=== PATIENT | male | born 1965 | race Caucasian/White ===

== ENCOUNTER 2017-01-07 15:53 | Emergency (ER) | payer BC ==
--- NOTE | 2017-01-07 17:16 | ER PHYSICIAN DOCUMENTATION ---
Physician Documentation [facility] Name:Javier Pickering Age:51 yrs Sex:Male :1965 Arrival Date:01/07/2017 Time:15:53 Bed6 Private MD: Mehrdad Carrero Disposition: 01/07/17 16:47 Discharged to Home/Self Care. Impression: Medial Malleolus Fracture. - Condition is Good. - Discharge Instructions: ANKLE FRACTURE General - FRACTURE, Ankle (General). - Prescriptions for Hydrocodone- Acetaminophen 5-325 mg Oral Tablet - take 1 tablet by ORAL route every 6 hours As needed; 20 tablet. - Medical Reconciliation form form. - Follow up: Kyler Franklin DO, Abraham Cuba MD; When: 4- 6 days; Reason: Continuance of care. - Problem is new. - Symptoms have improved. HPI: 01/07 16:27 This 51 yrs old Male presents to ER via Private Vehicle with complaints of sc Ankle Injury - RT. 16:27 The patient presents with decreased range of motion, an injury. The complaints affect sc the right ankle. Onset: The symptom(s)/episode began/occurred just prior to arrival. Context: The problem was sustained outdoors, resulted from twisting of the extremity, The mechanism of injury is unknown. The patient is unable to bear weight. must have assistance. Associated signs and symptoms: The patient has no apparent associated signs or symptoms. Historical: - Allergies: PENICILLINS; - Home Meds: 1. Ciprofloxacin Opht 2. Metronidazole Oral - PMHx: colitis; - PSHx: None; - Tetanus: < 10 years. - Ebola Screening: : Patient denies exposure to infectious person. Patient denies travel to an Ebola-affected area in the 21 days before illness onset. . - Social history: Smoking status: Patient states former smoker of tobacco. Patient uses alcohol on a daily basis. when not on meds that he can't drink with.. ROS: 16:28 Constitutional: Negative for fever, chills, and weight loss. sc Eyes: Negative for injury, pain, redness, and discharge. ENT: Negative for injury, pain, and discharge. Cardiovascular: Negative for chest pain, palpitations, and edema. Respiratory: Negative for shortness of breath, cough, wheezing, and pleuritic chest pain. Abdomen/GI: Negative for abdominal pain, nausea, vomiting, diarrhea, and constipation. Back: Negative for injury and pain. Skin: Negative for injury, rash, and discoloration. 16:28 Neuro: Negative for headache, weakness, numbness, tingling, and seizure. sc 16:28 MS/extremity: Positive for injury or acute deformity, decreased range of motion, swelling, tenderness. Exam: Constitutional: This is a well developed, well nourished patient who is awake, alert, and in no acute distress. Head/Face: Normocephalic, atraumatic. Neck: Trachea midline, no thyromegaly or masses palpated, and no cervical lymphadenopathy. Supple, full range of motion without nuchal rigidity, or vertebral point tenderness. No meningismus. Cardiovascular: Regular rate and rhythm with a normal S1 and S2. No gallops, murmurs, or rubs. Normal PMI, no JVD. No pulse deficits. Respiratory: Lungs have equal breath sounds bilaterally, clear to auscultation and percussion. No rales, rhonchi or wheezes noted. No increased work of breathing, no retractions or nasal flaring. Back: No spinal tenderness. No costovertebral tenderness. Full range of motion. Skin: Warm, dry with normal turgor. Normal color with no rashes, no lesions, and no evidence of cellulitis. 16:28 Neuro: Awake and alert, GCS 15, oriented to person, place, time, and situation. sc Cranial nerves II-XII grossly intact. Motor strength 5/5 in all extremities. Sensory grossly intact. Cerebellar exam normal. Normal gait. 16:28 Musculoskeletal/extremity: Extremities: grossly normal except: noted in the right ankle: decreased ROM, ecchymosis, swelling, tenderness, Circulation is intact in all extremities. Sensation intact. Compartment Syndrome exam of affected extremity: is normal. Calcaneus exam normal. 16:28 Skin: Exam negative for Vital Signs: 16:17 BP 127 / 85; Pulse 101; Resp 18; Temp 98.8; Pulse Ox 97% on R/A; Pain 8/10; st Procedures: 16:46 Splinting: Splint applied to right ankle using Orthoglass splint, applied by myself. sc Examined by mi, post splint application: neurovascular intact, Patient tolerated well. MDM: 16:03 Patient medically screened. sc 16:31 Differential diagnosis: fracture, sprain. Data reviewed: vital signs, nurses notes, sc radiologic studies, plain films, and as a result, I will discharge patient. Counseling: I had a detailed discussion with the patient and/or guardian regarding: the historical points, exam findings, and any diagnostic results supporting the discharge/admit diagnosis, radiology results, the need for outpatient follow up, for a referral to a specialist. 16:32 Test interpretation: by ED physician or midlevel provider: plain radiologic studies. ED sc course: medial malleolus fx, unclear if ankle stable, needs eval for possible surgery. 01/07 16:12 Order name: Ice Packs; Complete Time: 16:12 01/07 16:46 Order name: Elevate and Ice Pack; Complete Time: 17:14 fl 01/07 16:46 Order name: ORTHO: Crutches & Training; Complete Time: 17:14 fl Dispensed Medications: No medications were administered Signatures: Mary French RN RN st Chew, Scott, MD MD fl
--- NOTE | 2017-01-07 17:16 | ER NURSING DOCUMENTATION ---
Nurse's Notes [facility] Name:Javier Pickering Age:51 yrs Sex:Male :1965 Arrival Date:01/07/2017 Time:15:53 Bed6 Private MD: Diagnosis:Medial Malleolus Fracture Presentation: 01/07 15:56 Acuity: RHIANNON 4 st 16:12 Presenting complaint: Patient states: pt was sledding with his kids and they caught st some air and then landed on on the right ankle. pt has right ankle pain and swelling. Transition of care: patient was not received from another setting of care. 16:12 Method Of Arrival: Private Vehicle st Triage Assessment: 16:15 General: Appears in no apparent distress, Behavior is cooperative. Pain: Complains of st pain in right ankle Pain currently is 8 out of 10 on a pain scale. Aggravated by weight bearing. Neuro: No deficits noted. Cardiovascular: No deficits noted. Respiratory: No deficits noted. GI: No deficits noted. Musculoskeletal: Circulation, motion, and sensation intact Capillary refill < 3 seconds Swelling present in right ankle. Historical: - Allergies: PENICILLINS; - Home Meds: 1. Ciprofloxacin Opht 2. Metronidazole Oral - PMHx: colitis; - PSHx: None; - Tetanus: < 10 years. - Ebola Screening: : Patient denies exposure to infectious person. Patient denies travel to an Ebola-affected area in the 21 days before illness onset. . - Social history: Smoking status: Patient states former smoker of tobacco. Patient uses alcohol on a daily basis. when not on meds that he can't drink with.. Screenin:17 Infectious Disease Risk None. Abuse screen: Denies threats or abuse. Denies injuries st from another. pt feels safe at home. Nutritional screening: No deficits noted. Vital Signs: 16:17 BP 127 / 85; Pulse 101; Resp 18; Temp 98.8; Pulse Ox 97% on R/A; Pain 8/10; st ED Course: 15:55 Patient arrived in ED. lm3 15:56 Mary French, RN is Primary Nurse. st 15:[address] 16:03 Mehrdad Li MD is Attending Physician. sc 16:12 Port Xray Completed. pm1 16:18 Valuables Remains with patient Patient has correct armband on for positive st identification. Bed in low position. Ice pack to injury. 16:46 Kyler Franklin DO, Abraham Cuba MD is Referral Physician. ga 17:14 Assist Provider Assist provider with fracture care Performed by Mehrdad Li MD st Immobilized with OCL splint, Post immobilization, circulation, motor and sensation remain intact. Patient tolerated well. Administered Medications: No medications were administered Outcome: 16:47 Discharge ordered by . ga 17:15 Discharged to home ambulatory, with crutches. st 17:15 Condition: improved 17:15 Discharge instructions given to patient, family, Instructed on crutch walking, discharge instructions, follow up and referral plans. medication usage, Ortho Care Prescriptions given X 1. 17:15 [address] 01/09 11:49 Discharge F/U Call: Unable to reach: no answer st Signatures: Mary French, RN Mehrdad Johnson MD MD ga Jose Christensen pm1 Veronica, Bere lm3
--- NOTE | 2017-01-07 17:53 | RADIOLOGY REPORT ---
Three views of the right ankle demonstrate an oblique fracture of the medial malleolus with approximately 1 cm of anterior and distal displacement. The talus and fibula appear intact. No other abnormality is identified. IMPRESSION: Displaced interarticular oblique fracture of the medial malleolus as described. MTDD
== END 2017-01-07 17:16 | disposition home or self-care (01) ==
LOC: ER 15:53 → EDBD 15:53 → ER 17:16
DX: S82.54XA Nondisplaced fracture of medial malleolus of right tibia, initial encounter for closed fracture (principal); V00.221A Fall from sled, initial encounter; Y92.838 Other recreation area as the place of occurrence of the external cause; Y93.23 Activity, snow (alpine) (downhill) skiing, snowboarding, sledding, tobogganing and snow tubing
CPT/HCPCS: 29515; 99284